=== PATIENT | female | born 1990 | race Caucasian/White ===

== ENCOUNTER 2017-08-12 03:55 | Inpatient (IN) | payer BC, OTHER ==
[~2017-08-12] VITALS: Ht 170.2 cm; Wt 102.1 kg
[~2017-08-12 03:55] MED LIST: FERR-252 PO; IBUP-974 PO; PREN-385 PO
[2017-08-12] MEDS ORDERED: CITRIC ACID/SODIUM CITRATE 30 ML UDC PO SCH (06:00)
[2017-08-12] MEDS ORDERED: CITRIC ACID/SODIUM CITRATE 30 ML UDC ONE (07:00)
[2017-08-12] MEDS ORDERED: ceFAZolin 1,000 MG VIAL ONE (07:01)
[2017-08-12] MEDS: LACTATED RINGERS 1,000 ML IV SCH (07:02)
[2017-08-12 07:23] LABS: BASOPHILS # (AUTO) 0.1 K/uL (0.00-0.22); BASOPHILS % (AUTO) 1.3 % (0.0-2.0); EOSINOPHILS # (AUTO) 0.4 K/uL (0-0.4); EOSINOPHILS % (AUTO) 5.5 % (0.0-4.0); HEMATOCRIT 30.4 % (36-48); LYMPHOCYTES # (AUTO) 2.1 K/uL (2.5-16.5); LYMPHOCYTES % (AUTO) 27.7 % (20.5-51.1); MEAN CORPUSCULAR HEMOGLOBIN 26 pg (27-31); MEAN CORPUSCULAR HGB CONC 33 g/dL (33-37); MEAN CORPUSCULAR VOLUME 77 fL (80-94); MONOCYTES # (AUTO) 0.6 K/uL (0.8-1.0); MONOCYTES % (AUTO) 7.8 % (1.7-9.3); NEUTROPHILS # (AUTO) 4.4 K/uL (1.8-7.7); NEUTROPHILS % (AUTO) 57.7 % (42.2-75.2); PLATELET COUNT (AUTO) 250 K/uL (140-450); RED BLOOD CELL COUNT(AUTO) 3.94 MIL/uL (4.20-5.40); RED CELL DISTRIBUTION WIDTH 13.7 % (11.6-13.7); WHITE BLOOD COUNT (AUTO) 7.6 K/uL (4.8-10.8)
[2017-08-12] MEDS ORDERED: BUPIVACAINE-MPF 0.75% 10 ML VIAL INJ ONE (07:30)
[2017-08-12] MEDS ORDERED: MIDAZOLAM 2 MG/2 ML VIAL ONE (07:32)
[2017-08-12] MEDS ORDERED: MORPHINE PRES FREE 10 MG/10 ML AMP IV ONE (07:33)
[2017-08-12] MEDS ORDERED: INFLUENZA VIRUS VACCINE QUAD 0.5 ML SYR IMVAC SCH (07:45)
[2017-08-12 07:46] VITALS: BP 113/74
[2017-08-12] MEDS ORDERED: OXYTOCIN 10 UNITS/ML VIAL ONE (07:57)
[2017-08-12] MEDS ORDERED: diphenhydrAMINE 50 MG/ML VIAL IVP PRN ×2 (08:00)
[2017-08-12] MEDS ORDERED: ONDANSETRON 4 MG/2 ML VIAL IVP PRN ×2 (08:00)
[2017-08-12] MEDS ORDERED: MEPERIDINE 25 MG/ML SYR IVP PRN (08:00)
[2017-08-12] MEDS ORDERED: NALBUPHINE 10 MG/ML AMP IVP PRN (08:00)
[2017-08-12] MEDS ORDERED: OXYTOCIN 20 UNITS in LACTATED RINGERS 1,000 ML IV SCH (08:00)
[2017-08-12] MEDS ORDERED: NALOXONE 0.4 MG/ML VIAL IVP PRN ×3 (08:00)
[2017-08-12] MEDS ORDERED: HYDROmorphone PFS 2 MG/ML SYR IVP PRN (08:00)
[2017-08-12] MEDS ORDERED: METHYLERGONOVINE 0.2 MG/ML AMP IM PRN (08:15)
[2017-08-12] MEDS ORDERED: HYDROcodone/APAP 5/325 MG 1 TAB TAB PO PRN (08:15)
[2017-08-12] MEDS ORDERED: MEASLES, MUMPS, AND RUBELLA 1 VIAL SQVAC PRN (08:15)
[2017-08-12] MEDS ORDERED: TRIMETHOBENZAMIDE 200 MG/2 ML SYR IM PRN (08:15)
[2017-08-12] MEDS ORDERED: TEMAZEPAM 15 MG CAP PO PRN (08:15)
[2017-08-12] MEDS ORDERED: IBUPROFEN 800 MG TAB PO PRN (08:15)
[2017-08-12 08:58] LABS: APPEARANCE,URINE TURBID (CLEAR); BILIRUBIN,URINE NEGATIVE (NEGATIVE); BLOOD, URINE NEGATIVE (NEGATIVE); COLOR,URINE YELLOW (YELLOW); LEUKOCYTE ESTERASE ,URINE 3+ (NEGATIVE); PH,URINE 6.5 (5.0-9.0); UGLUCOSE NEGATIVE (NEGATIVE)
[2017-08-12] MEDS ORDERED: diphenhydrAMINE 50 MG/ML VIAL ONE (08:58)
[2017-08-12] MEDS ORDERED: ONDANSETRON 4 MG/2 ML VIAL ONE (08:58)
[2017-08-12 09:26] LABS: RBC,URINE 0-5 (RARE) /HPF (0-5)
[2017-08-12 09:27] LABS: NITRITE, URINE POSITIVE (NEGATIVE); YEAST,URINE Few /HPF (None Seen)
--- NOTE | 2017-08-12 09:55 | NUR ---
PATIENT HAS BEEN SCREENED AND CATEGORIZED LOW NUTRITION RISK. PATIENT WILL BE SEEN WITHIN 7 DAYS OF ADMISSION. 08/18/[address]
[2017-08-12] MEDS: KETOROLAC 30 MG/ML VIAL IM/IVP SCH ×2 (12:08→17:27)
[2017-08-12] MEDS: OXYTOCIN 20 UNITS in LACTATED RINGERS 1,000 ML IV SCH ×2 (13:30→21:17)
[2017-08-13] MEDS: KETOROLAC 30 MG/ML VIAL IM/IVP SCH (00:18)
[2017-08-13] MEDS ORDERED: OXYTOCIN 20 UNITS/LR PREMIX 1,000 ML IV ONE (04:59)
[2017-08-13] MEDS: LACTATED RINGERS 1,000 ML IV SCH (05:30)
[2017-08-13 06:58] LABS: BASOPHILS # (AUTO) 0.1 K/uL (0.00-0.22); BASOPHILS % (AUTO) 1.6 % (0.0-2.0); EOSINOPHILS # (AUTO) 0.4 K/uL (0-0.4); EOSINOPHILS % (AUTO) 4.4 % (0.0-4.0); HEMATOCRIT 31.9 % (36-48); HEMOGLOBIN 10.2 g/dL (12.0-16.0); LYMPHOCYTES # (AUTO) 1.5 K/uL (2.5-16.5); LYMPHOCYTES % (AUTO) 17.5 % (20.5-51.1); MEAN CORPUSCULAR HEMOGLOBIN 25 pg (27-31); MEAN CORPUSCULAR HGB CONC 32 g/dL (33-37); MEAN CORPUSCULAR VOLUME 78 fL (80-94); MONOCYTES # (AUTO) 0.8 K/uL (0.8-1.0); MONOCYTES % (AUTO) 9.3 % (1.7-9.3); NEUTROPHILS # (AUTO) 5.8 K/uL (1.8-7.7); NEUTROPHILS % (AUTO) 67.2 % (42.2-75.2); PLATELET COUNT (AUTO) 216 K/uL (140-450); RED BLOOD CELL COUNT(AUTO) 4.08 MIL/uL (4.20-5.40); RED CELL DISTRIBUTION WIDTH 13.5 % (11.6-13.7); WHITE BLOOD COUNT (AUTO) 8.6 K/uL (4.8-10.8)
[2017-08-13 08:18] LABS: HEPATITIS A ANTIBODY IGM Negative (Negative); HEPATITIS B CORE AB TOTAL Negative (Negative); HEPATITIS B SURFACE ANTIBODY Non Reactive (.); HEPATITIS B SURFACE ANTIGEN Negative (Negative)
[2017-08-13] MEDS: oxyCODONE/APAP 5/325 MG 1 TAB TAB PO PRN ×2 (11:11→21:27)
[2017-08-13] MEDS: SIMETHICONE 80 MG TAB.CHEW PO PRN ×2 (11:11→21:29)
[2017-08-13] MEDS: DOCUSATE SOD/SENNA 50/8.6 MG 1 TAB PO SCH (21:28)
[2017-08-14] MEDS: oxyCODONE/APAP 5/325 MG 1 TAB TAB PO PRN (10:46)
[2017-08-14] MEDS: DOCUSATE SOD/SENNA 50/8.6 MG 1 TAB PO SCH (21:19)
[2017-08-14] MEDS: SIMETHICONE 80 MG TAB.CHEW PO PRN (21:19)
[2017-08-15 11:02] LABS: RAPID PLASMA REAGIN NON-REACTIVE (Non Reactiv)
== END 2017-08-15 11:20 | disposition home or self-care (01) | DRG 766 ==
LOC: MLD 05:20 → MFCC 08:25
PROVIDERS: ADMIT Obstetrics & Gynecology; ATTEND Obstetrics & Gynecology
PROC: 10D00Z1 Extraction of Products of Conception, Low, Open Approach (ICD-10-PCS; principal; 2017-08-12 07:30)
PROC: 3E0234Z Introduction of Serum, Toxoid and Vaccine into Muscle, Percutaneous Approach (ICD-10-PCS; 2017-08-13)
PROC: 3E0234Z Introduction of Serum, Toxoid and Vaccine into Muscle, Percutaneous Approach (ICD-10-PCS; 2017-08-13)
PROC: 3E0134Z Introduction of Serum, Toxoid and Vaccine into Subcutaneous Tissue, Percutaneous Approach (ICD-10-PCS; 2017-08-13)
DX: O34.211 Maternal care for low transverse scar from previous cesarean delivery (principal); E66.01 Morbid (severe) obesity due to excess calories; O99.214 Obesity complicating childbirth; O99.02 Anemia complicating childbirth; D64.9 Anemia, unspecified; Z37.0 Single live birth; Z68.35 Body mass index [BMI] 35.0-35.9, adult; Z3A.39 39 weeks gestation of pregnancy; Z83.3 Family history of diabetes mellitus; Z82.49 Family history of ischemic heart disease and other diseases of the circulatory system; Z23 Encounter for immunization
CPT/HCPCS: 36415; 51702; 81001; 82948; 85025; 86592; 86704; 86706; 86708; 86709; 86762; 86803; 86886; 86900; 86901; 87081; 87086; 87340; 90658; 90707; 90715; J0690; J1200; J1885; J2250; J2270; J2405; J2590; J3250; J3490; J7060; J7120